=== PATIENT | female | born 1960 ===

== ENCOUNTER 2020-07-30 14:00 | Observation (INO) ==
[2020-07-30] MEDS ORDERED: Aspirin 81 MG TAB.CHEW PO ONE (14:45)
[2020-07-30] MEDS ORDERED: Isovue-370 500 ML BOTTLE IVP ONE (14:54)
[2020-07-30 15:55] LABS: Basophils # 0.1 K/mcL (0.0-0.2); Basophils % 0.8 %; Eosinophils # 0.2 K/mcL (0.0-0.6); Eosinophils % 1.8 %; Hematocrit 39.5 % (35.3-44.9); Hemoglobin 13.2 g/dL (11.5-15.4); Immature Granulocytes % 0.2 % (0-4); Lymphocytes # 3.9 K/mcL (0.6-4.6); Lymphocytes % 44.7 %; Mean Corpuscular HGB Conc 33.4 g/dL (31.6-35.5); Mean Corpuscular Hemoglobin 31.5 pg (28.0-33.3); Mean Corpuscular Volume 94.3 fL (83.0-100.0); Mean Platelet Volume 11.6 fL (9.4-12.4); Monocytes # 0.5 K/mcL (0.0-1.3); Neutrophils # 4.1 K/mcL (1.6-8.9); Platelet Count 205 K/mcL (140-400); Red Blood Count 4.19 M/mcL (3.82-4.97); Red Cell Distribution Width 11.9 % (11.5-14.5); Segmented Neutrophils % 46.5 %; White Blood Count 8.7 K/mcL (4.3-11.1)
[2020-07-30 16:04] LABS: Prothrombin Time 11.4 Seconds (9.4-12.1)
[2020-07-30 16:07] LABS: Activated Partial Thrombo Time 31.5 Seconds (26.0-36.0)
[2020-07-30 16:21] LABS: BUN/Creatinine Ratio 12 (6-26); Blood Urea Nitrogen 11 mg/dL (8-23); Calcium 9.7 mg/dL (8.6-10.3); Carbon Dioxide 25 mEq/L (23-29); Chloride 106 mEq/L (98-107); Glucose 97 mg/dL (70-105); Osmolality,Calculated 285 (280-300); Potassium 3.8 mEq/L (3.5-5.1); Sodium 138 mEq/L (136-145); eGFR For African Americans > 60 (> 60); eGFR For Non-African Americans > 60 (> 60)
[2020-07-30 16:22] LABS: Troponin I < 0.03 ng/mL (< 0.04)
[2020-07-30] MEDS ORDERED: Naloxone 0.4 MG/ML INJ IVP PRN (18:37)
[2020-07-30] MEDS ORDERED: Melatonin 3 MG TABLET PO PRN (18:37)
[2020-07-30] MEDS ORDERED: Ondansetron ODT 4 MG TAB.RAPDIS SL PRN (18:37)
[2020-07-30] MEDS ORDERED: Perflutren Lipid Microsphere 1.3 ML in 0.9 % Sodium Chloride 8.7 ML IVP PRN (19:04)
[2020-07-30] MEDS ORDERED: Nitroglycerin 0.4 MG TAB.SUBL SL PRN (19:05)
[2020-07-30] MEDS: Nicotine 7 MG PATCH.TD24 TD SCH (20:52)
[2020-07-30] MEDS: *HR* Heparin 5,000 UNIT/ML VIAL SQ SCH (20:53)
[2020-07-31] MEDS: *HR* Heparin 5,000 UNIT/ML VIAL SQ SCH ×2 (03:47→11:43)
[2020-07-31 04:38] LABS: Basophils # 0.1 K/mcL (0.0-0.2); Basophils % 0.7 %; Eosinophils # 0.3 K/mcL (0.0-0.6); Eosinophils % 3.2 %; Hematocrit 37.3 % (35.3-44.9); Hemoglobin 12.5 g/dL (11.5-15.4); Immature Granulocytes % 0.2 % (0-4); Lymphocytes # 4.5 K/mcL (0.6-4.6); Lymphocytes % 50.4 %; Mean Corpuscular HGB Conc 33.5 g/dL (31.6-35.5); Mean Corpuscular Hemoglobin 31.7 pg (28.0-33.3); Mean Corpuscular Volume 94.7 fL (83.0-100.0); Mean Platelet Volume 11.8 fL (9.4-12.4); Monocytes # 0.6 K/mcL (0.0-1.3); Monocytes % 6.9 %; Neutrophils # 3.4 K/mcL (1.6-8.9); Platelet Count 193 K/mcL (140-400); Red Blood Count 3.94 M/mcL (3.82-4.97); Segmented Neutrophils % 38.6 %; White Blood Count 8.9 K/mcL (4.3-11.1)
[2020-07-31 04:56] LABS: BUN/Creatinine Ratio 15 (6-26); Blood Urea Nitrogen 14 mg/dL (8-23); Calcium 9.1 mg/dL (8.6-10.3); Carbon Dioxide 25 mEq/L (23-29); Chloride 107 mEq/L (98-107); Chol/HDL Ratio 4.6 (0-4.9); Cholesterol 198 mg/dL (< 200); Glucose 111 mg/dL (70-105); HDL Cholesterol 43 mg/dL (40-59); LDL Cholesterol,Calculated 139 mg/dL (< 100); Osmolality,Calculated 289 (280-300); Sodium 139 mEq/L (136-145); Triglycerides 81 mg/dL (< 150); Troponin I < 0.03 ng/mL (< 0.04); eGFR For African Americans > 60 (> 60); eGFR For Non-African Americans > 60 (> 60)
[2020-07-31 05:05] LABS: Reactive Lymphocytes Present (Not Present); Toxic Granulation Present (Not Present)
[2020-07-31 05:06] LABS: Platelet Estimate Normal (Normal)
[2020-07-31] MEDS ORDERED: *HR* Heparin 5,000 UNIT/ML VIAL SQ SCH (06:00)
[2020-07-31] MEDS ORDERED: Regadenoson 0.4 MG/5 ML SYRINGE IVP ONE (07:17)
[2020-07-31] MEDS ORDERED: Aspirin Enteric Coated 81 MG Tablet PO SCH (09:00)
[2020-07-31] MEDS ORDERED: Lisinopril-HCTZ 20-12.5mg TABLET PO SCH (09:00)
[2020-07-31] MEDS ORDERED: LOVASTATIN 40 MG PO SCH (09:00)
[2020-07-31] MEDS ORDERED: Budesonide/Formoterol 160/4.5 1 PUFF INH IH SCH (10:00)
[2020-07-31] MEDS: Nicotine 7 MG PATCH.TD24 TD SCH (10:30)
[2020-07-31 13:42] VITALS: BP 149/79
== END 2020-07-31 15:25 | disposition home or self-care (01) ==
LOC: 3BNU 14:00 → EMEROOARM 14:00 → SUATTDRO 19:20 → 3BNU 20:32
PROVIDERS: ADMIT Internal Medicine; ATTEND Registered Nurse